=== PATIENT | male | born 1975 | race Caucasian/White ===

== ENCOUNTER 2019-12-13 07:29 | Day surgery (SDC) | payer BC ==
[~2019-12-13] VITALS: Ht 172.7 cm; Wt 94.0 kg
[~2019-12-13 07:29] MED LIST: CARAFATE1 GM PO; LIDOCAINE HCL100 ML MT; NORCO 7.5-3251 EACH PO
[2019-12-13] MEDS ORDERED: OMEPRAZOLE20 MG PO (07:48)
--- NOTE | 2019-12-13 09:11 | NUR ---
12/13/19 0911 Ria Rg 0908- PT TO PACU IN SUPINE POSITION. EYES OPEN. PT A&O X 3. DENIES PAIN NAUSEA OR DIZZINESS. SPO2 >95% ON 2 L O2 VIA NC. BREATHING EASY AND UNLABORED. VSS
--- NOTE | 2019-12-14 06:29 | OR ---
[facility] [address] [place], [place] [address] Signed DATE OF OPERATION: 12/13/2019 SURGEON: Danny Sen MD PREOPERATIVE DIAGNOSES: 1. Heartburn. 2. Gastroesophageal reflux disease. POSTOPERATIVE DIAGNOSES: 1. Small hiatal hernia. 2. Minimal distal gastritis. PROCEDURES: EGD with CLOtest and biopsies of the antrum. ESTIMATED BLOOD LOSS: None. 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 The last 3 or 4 years he has been having trouble with heartburn and acid reflux. He said Tums can usually take care of it. However, he had an episode that went on for almost 14 hours, he had gone to the emergency room lidocaine really helped. He has been on omeprazole and sucralfate and he said that really made a difference. Consequently, he was asked to see me for upper endoscopy. In the office, I gave him a pamphlet on upper endoscopy and we looked at that together in detail. He understands the nature of the test along with the risks including, but not limited to gas bloating, crampy abdominal pain, bleeding, perforation requiring surgery, and missed diagnosis. He also understands the need for IV conscious sedation. He had expressed understanding and wished to proceed. DESCRIPTION OF PROCEDURE: Kavin was taken into our endoscopy suite and placed in the supine semi-recumbent position. The posterior oropharynx was anesthetized with lidocaine spray. A bite block was utilized for the case. He was given a total of 5 mg of Versed and 100 mcg of fentanyl to cover the case. The adult gastroscope was introduced and advanced out in the third portion of the duodenum under direct visualization of camera without difficulty. The duodenum and pyloric channel were unremarkable. Back in the stomach, he had very mild patchy erythematous changes with what appears to be healing and resolving gastritis. We took a biopsy of the antrum for CLOtest as well as pathologic Electronically Signed By: DANNY SEN MD 12/14/19 0629 PATIENT NAME: KAVIN COLLAZO OPERATIVE REPORT DATE OF : 71 REPORT #: [id number] PHYSICIAN: DANNY SEN MD PCP: CHACE RODRIGUEZ MD REPORT IS CONFIDENTIAL AND NOT TO BE RELEASED WITHOUT AUTHORIZATION [facility] [address] [place], [place] [address] Signed review. The rest of the stomach was unremarkable. Upon retroflexion of scope, he does have a small hiatal hernia. The scope was withdrawn up through the area of the GE junction, which was compliant without stricture. Very minimal disruption at all to the Z-line. No Huff's mucosa. No distal esophagitis. The middle and upper esophagus were unremarkable. After this, the gas was suctioned out and the gastroscope removed. Kavin tolerated the procedure quite well. RECOMMENDATIONS: I will see Gonzalo back in my office in 7 to 14 days to review his results. Danny Sen MD ALB/MODL /[id number] cc: MD Chace Hernandez MD Copies: DANNY SEN MD, RUSSELL BARR MD ~ Electronically Signed By: DANNY SEN MD 12/14/19 0629 PATIENT NAME: KAVIN COLLAZO OPERATIVE REPORT DATE OF : 71 REPORT #: [id number] PHYSICIAN: DANNY SEN MD PCP: CHACE RODRIGUEZ MD REPORT IS CONFIDENTIAL AND NOT TO BE RELEASED WITHOUT AUTHORIZATION
--- NOTE | 2019-12-14 12:53 | PATH ---
[facility] [address] [place], [place] [address] Signed SPECIMEN(S): A ANTRUM/PYLORUS SPECIMEN SOURCE: A. ANTRUM/PYLORUS CLINICAL HISTORY: GERD. Gastritis, small hiatal hernia. MICROSCOPIC DESCRIPTION: Histologic sections of all submitted blocks are examined by light microscopy. These findings, together with the gross examination, support the pathologic diagnosis. FINAL PATHOLOGIC DIAGNOSIS: Stomach, antrum/pylorus, biopsy: - Antral mucosa with mild reactive gastropathy. - Negative for Helicobacter organisms on HE stain. - Negative for dysplasia or malignancy. NAL:cml:C2NR GROSS DESCRIPTION: The specimen, labeled "FW, antrum biopsy," is received in formalin and consists of one phan soft tissue fragment that measures 0.2 cm in greatest dimension. The specimen is entirely submitted in cassette (A1). JS (under the direct supervision of a pathologist) The Gross Description was prepared using a voice recognition system. The report was reviewed for accuracy; however, sound-alike word errors, addition and/or deletions may occur. If there is any question about this report, please contact Client Services. PERFORMING LABORATORY: The technical component was performed by [facility], [address] [place] [id number] (Oracle Engineer: Hafsa Rivas MD; CLIA# [id number]). [facility] [address] [address] (CLIA# [id number]). Diagnostician: Vero Calixto MD Pathologist Electronically Signed 12/14/2019 PATIENT NAME: ANA CRISTINA COLLAZO PATHOLOGY DATE OF : 71 REPORT #: [id number] PHYSICIAN: [facility] PCP: CHACE RODRIGUEZ MD REPORT IS CONFIDENTIAL AND NOT TO BE RELEASED WITHOUT AUTHORIZATION [address] [place], [place] [address] Signed Copies: ~ PATIENT NAME: ANA CRISTINA COLLAZO PATHOLOGY DATE OF : 71 REPORT #: [id number] PHYSICIAN: [facility] PCP: CHACE RODRIGUEZ MD REPORT IS CONFIDENTIAL AND NOT TO BE RELEASED WITHOUT AUTHORIZATION
== END 2019-12-13 09:30 | disposition home or self-care (01) ==
LOC: OPS 07:29 → DS 07:31 → OPS 09:00
PROVIDERS: ATTEND Colon & Rectal Surgery
PROC: 0DB78ZX Excision of Stomach, Pylorus, Via Natural or Artificial Opening Endoscopic, Diagnostic (ICD-10-PCS; principal; 2019-12-13 09:00)
DX: K31.9 Disease of stomach and duodenum, unspecified (principal); K44.9 Diaphragmatic hernia without obstruction or gangrene; K21.9 Gastro-esophageal reflux disease without esophagitis; Z79.899 Other long term (current) drug therapy; F17.220 Nicotine dependence, chewing tobacco, uncomplicated
CPT/HCPCS: 86677; 99153; G0500; J2250; J3010; J7121